=== PATIENT | male | born 1965 | race Caucasian/White ===

== ENCOUNTER 2025-06-02 15:37 | Outpatient (REF) | payer BC, SELFPAY ==
--- NOTE | 2025-06-02 15:00 | PROST_PTH ---
PATIENT: Carlos Perdomo LOC: [facility] U#:[id number] AGE/SX: 60/M ROOM: RE06/02/[address]: Jaden Lemus MD : 1965 BED: DIS: 06/02/2025 SPEC #: [id number] RECD: 06/02/25 17:30 STATUS: JOHN RE #: [id number] KERLINE: 06/02/25 15:[address]: Jaden Lemus DEPT: Surgical Specimen RECD BY: Taryn Hernandez ENTERED: 06/02/25 17:32 SP TYPE: PROST OTHR DR: Gloria Hagen Tissues: 1 - PROSTATE NEEDLE BIOPSY 2 - PROSTATE NEEDLE BIOPSY 3 - PROSTATE NEEDLE BIOPSY 4 - PROSTATE NEEDLE BIOPSY 5 - PROSTATE NEEDLE BIOPSY 6 - PROSTATE NEEDLE BIOPSY 7 - PROSTATE NEEDLE BIOPSY 8 - PROSTATE NEEDLE BIOPSY 9 - PROSTATE NEEDLE BIOPSY 10 - PROSTATE NEEDLE BIOPSY 11 - PROSTATE NEEDLE BIOPSY 12 - PROSTATE NEEDLE BIOPSY Procedures: GROSS AND MICRO LEVEL 4 IMMUNOPEROXIDASE STAIN Comments: [id number]
== END 2025-06-02 15:38 | disposition home or self-care (01) ==
LOC: LBN 15:37
PROVIDERS: PCP Nurse Practitioner; Visit Provider Urology
DX: C61 Malignant neoplasm of prostate (principal); R97.20 Elevated prostate specific antigen [PSA]
CPT/HCPCS: 88305; 88361